=== PATIENT | male | born 1995 | race Native Hawaiian/Other Pacific Islander ===

== ENCOUNTER 2019-11-20 12:36 | Emergency (ER) | payer OTHER ==
[2019-11-20 12:42] VITALS: BP 138/84; TEMP 97.8
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
[2019-11-20 13:09] VITALS: PULSE 63; RESP 18
--- NOTE | 2019-11-20 13:32 | XR ---
EXAMINATION TYPE: XR clavicle RT DATE OF EXAM: 11/20/2019 COMPARISON: None HISTORY: Pain fall TECHNIQUE: Two-view clavicle FINDINGS: There is mild alignment change between the distal clavicle and the acromion while there is not separation, depressed acromion in relation to the clavicle may be present measuring up to 0.9 cm. Acromioclavicular joint separation should be considered within the differential. Additional imaging without and with weights could be performed for closer evaluation. No fractures are identified. Sternal clavicular junction appears unremarkable. IMPRESSION: 1. There may be depression of the acromion which would indicate underlying the acromioclavicular eliud nt separation although the space is not increased significantly on these images. Consider without wit h weight evaluation of the acromioclavicular junctions.
--- NOTE | 2019-11-20 13:33 | XR ---
EXAMINATION TYPE: XR shoulder complete RT DATE OF EXAM: 11/20/2019 COMPARISON: NONE HISTORY: Pain TECHNIQUE: Shoulder examined in 3 projections FINDINGS: The humeral head articulates with the glenoid. There is downward depression of the acromion in relation to the distal clavicle. Please see clavicle discussion same date. No acute fractures are evident. Acromioclavicular joint separation is not entirely excluded. A follow up study can be performed 7-10 days from acute trauma for continued pain. IMPRESSION: 1. The distal acromion may be depressed in relation to the distal clavicle. While this space is not i ncreased, acromioclavicular joint separation could be considered. This could be evaluated without wit h weights. 2. No acute fractures of the right shoulder.
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
== END 2019-11-20 14:12 | disposition home or self-care (01) ==
LOC: EC 12:36
DX: M25.511 Pain in right shoulder (principal); S50.311A Abrasion of right elbow, initial encounter; F17.200 Nicotine dependence, unspecified, uncomplicated; V28.4XXA Motorcycle driver injured in noncollision transport accident in traffic accident, initial encounter; Y93.55 Activity, bike riding; Y92.480 Sidewalk as the place of occurrence of the external cause
CPT/HCPCS: 71045; 99283

== ENCOUNTER 2020-04-20 17:53 | Emergency (ER) | payer OTHER ==
[2020-04-20 17:59] VITALS: RESP 18
[2020-04-20] MEDS ORDERED: ACET/COD 300 MG/30 MG STARTER PACK 6 TAB BTL PO STA (18:51)
[2020-04-20] MEDS ORDERED: KETOROLAC 15 MG/ML 1 ML VIAL IM STA (18:51)
--- NOTE | 2020-04-20 19:29 | XR ---
EXAMINATION TYPE: XR chest 2V DATE OF EXAM: 04/20/2020 COMPARISON: 11/20/2019 HISTORY: Chest pain TECHNIQUE: FINDINGS: Heart and mediastinum are normal. Lungs are clear. Diaphragm is normal. Bony thorax appears normal. IMPRESSION: Normal chest. No change.
--- NOTE | 2020-04-20 19:29 | XR ---
EXAMINATION TYPE: XR ankle complete LT DATE OF EXAM: 04/20/2020 COMPARISON: NONE HISTORY: Ankle pain TECHNIQUE: 3 views FINDINGS: Ankle mortise is anatomic. I see no fracture nor dislocation. Joint spaces are normal. Ther e is small Achilles calcaneal spur. IMPRESSION: Mild calcaneal spurring. No fracture seen.
--- NOTE | 2020-04-20 19:30 | XR ---
EXAMINATION TYPE: XR foot complete LT DATE OF EXAM: 04/20/2020 COMPARISON: NONE HISTORY: Pain TECHNIQUE: 3 views FINDINGS: Metatarsals are intact. I see no fracture nor dislocation. Joint spaces are normal. The toe s appear intact. IMPRESSION: Negative left foot exam.
[2020-04-20 19:56] LABS: Appearance,Urine Clear (Clear); Bilirubin,Urine Negative (Negative); Blood,Urine Negative (Negative); Color,Urine Yellow; Glucose,Urine (UA) Negative (Negative); Ketones,Urine Negative (Negative); Leukocyte Esterase,Urine Trace (Negative); Mucus,Urine Rare /hpf; Nitrite,Urine Negative (Negative); Protein,Urine Trace (Negative); RBC,Urine 2 /hpf (0-5); Specific Gravity,Urine 1.026 (1.001-1.035); Sperm,Urine Rare /hpf; Squamous Epithelial Cell,Urine <1 /hpf (0-4); Urobilinogen,Urine <2.0 mg/dL (<2.0); WBC,Urine 1 /hpf (0-5)
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
[2020-04-20 22:37] VITALS: BP 143/74; PULSE 67; TEMP 98.3
== END 2020-04-20 22:24 | disposition home or self-care (01) ==
LOC: EC 17:53
DX: M79.89 Other specified soft tissue disorders (principal); S70.02XA Contusion of left hip, initial encounter; R07.9 Chest pain, unspecified; V27.4XXA Motorcycle driver injured in collision with fixed or stationary object in traffic accident, initial encounter; Y92.410 Unspecified street and highway as the place of occurrence of the external cause
CPT/HCPCS: 81001; 73610; 73630; 71046; 73700; 99284; 96372; L4350; J1885

== ENCOUNTER 2020-11-12 17:29 | Emergency (ER) | payer OTHER ==
[2020-11-12 17:50] VITALS: BP 141/85; PULSE 56; RESP 18; TEMP 98.5
--- NOTE | 2020-11-12 20:00 | ED ---
Skin/Abscess/FB HPI - General Chief complaint: Skin/Abscess/Foreign Body Stated complaint: Lump on Neck Time Seen by Provider: 11/12/20 19:34 Source: patient Mode of arrival: ambulatory Limitations: no limitations - History of Present Illness Initial comments: 25-year-old male patient presents to the emergency department today for evaluation of lump to the right side of his neck. Patient states this started today. Denies any pain to the area. Denies any sore throat, fever, chills, or ear pain. Denies any dental pain. States he has been eating and drinking without difficulty. Denies history of similar symptoms. Denies any other areas of swelling. - Related Data Home Medications Medication Instructions Recorded Confirmed valACYclovir HCL [Valtrex] 1,000 mg PO DAILY PRN 04/20/20 04/20/20 Previous Rx's Medication Instructions Recorded Ibuprofen [Motrin] 600 mg PO Q8HR PRN #30 tab 04/20/20 Allergies Allergy/AdvReac Type Severity Reaction Status Date / Time No Known Allergies Allergy Verified 11/12/20 17:51 Review of Systems ROS Statement: Those systems with pertinent positive or pertinent negative responses have been documented in the HPI. ROS Other: All systems not noted in ROS Statement are negative. Past Medical History Past Medical History: No Reported History History of Any Multi-Drug Resistant Organisms: None Reported Past Surgical History: No Surgical Hx Reported Past Psychological History: No Psychological Hx Reported Past Alcohol Use History: Occasional Past Drug Use History: None Reported General Exam Limitations: no limitations General appearance: alert, in no apparent distress ENT exam: Present: normal exam, normal oropharynx, mucous membranes moist Neck exam: Present: lymphadenopathy (Right cervical). Absent: tenderness, meningismus Respiratory exam: Present: normal lung sounds bilaterally. Absent: respiratory distress, wheezes, rales, rhonchi, stridor Cardiovascular Exam: Present: regular rate, normal rhythm, normal heart sounds. Absent: systolic murmur, diastolic murmur, rubs, gallop, clicks Neurological exam: Present: alert, oriented X3, CN II-XII intact Psychiatric exam: Present: normal affect, normal mood Skin exam: Present: warm, dry, intact, normal color. Absent: rash Course Vital Signs 11/12/20 17:47 Temperature 98.5 F Pulse Rate 56 L Respiratory 18 Rate Blood Pressure 141/85 O2 Sat by Pulse 95 Oximetry Medical Decision Making - Medical Decision Making 25-year-old male patient presents to the emergency department today for evaluation of a lump to the right side of his neck. He noticed it today. Physical examination reveals a mobile, 1.5 cm, round mass to the right lateral neck consistent with enlarged lymph node. There is no erythema, no tenderness. Throat infections unremarkable. He is afebrile. He'll be discharged follow-up with his primary care physician for recheck in 1-2 days. Return parameters were discussed in detail. He verbalizes understanding and agrees with this plan. My attending is Dr. Francisco. Disposition Clinical Impression: Cervical lymphadenopathy Disposition: HOME SELF-CARE Condition: Good Instructions (If sedation given, give patient instructions): Lymphadenopathy (ED) Additional Instructions: Follow up with your primary care physician for recheck in 1-2 days. Return to the emergency department immediately for any new, worsening, or concerning symptoms. Is patient prescribed a controlled substance at d/c from ED?: No Referrals: Phoebe Ramírez MD [Primary Care Provider] - 1-2 days Time of Disposition: 20:00
== END 2020-11-12 20:05 | disposition home or self-care (01) ==
LOC: EC 17:29
DX: R59.0 Localized enlarged lymph nodes (principal)
CPT/HCPCS: 99282